=== PATIENT | female | born 1950 | race Two or more races ===

== ENCOUNTER 2020-10-06 13:50 | Emergency (ER) | payer BC ==
[~2020-10-06] VITALS: Ht 167.6 cm; Wt 70.0 kg
--- NOTE | 2020-10-06 14:00 | NUR ---
JIMY ARITA from urgent care. Pt reports seizure 4days to 2 weeks ago (pt unsure of exact date). And pt hit her face during the seizure. Pt with intermittent epistaxis since then, seen x2 at [facility] for same, referred to [facility] ENT specialist. Pt sitting in ENT chair, gauze held to nose to absorb small amount of blood. Pt speaking in full sentences, resp even and unlabored. Continuous oxygen and BP monitors applied, all safety measures observed.
--- NOTE | 2020-10-06 14:22 | NUR ---
JOSEPH RN: PT REPORTS A PAIN IN HER NOSE. VS STABLE. NO ACUTE DISTRESS NOTED. CALL LIGHT IN PLACE.
[2020-10-06 16:02] VITALS: BP 144/53
--- NOTE | 2020-10-06 16:05 | NUR ---
Set of vs obtained, vss. Pt is sitting upright in exam roe, call light within reach.
[2020-10-06] MEDS ORDERED: OXYMETAZOLINE NASAL SPRAY 0.05%,30ML ONE (16:24)
[2020-10-06] MEDS ORDERED: HYDROcodone/APAP 5/325 TABLET ONE (16:24)
[2020-10-06] MEDS ORDERED: HYDROcodone/APAP 5/325 TABLET PO ONE (16:30)
[2020-10-06] MEDS ORDERED: OXYMETAZOLINE NASAL SPRAY 0.05%, 15ML NAS ONE (16:30)
--- NOTE | 2020-10-06 17:08 | NUR ---
Pt reports pain in nose improved after medications. Pt denies other needs.
[2020-10-07] MEDS ORDERED: DIVA125T2 PO (18:42)
[2020-10-07] MEDS ORDERED: ZOLP-413 PO (18:42)
[2020-10-07] MEDS ORDERED: LEVE750T8 PO (18:42)
[2020-10-07] MEDS ORDERED: [UNRECOGNIZED DRUG - CODE] PO (18:42)
[2020-10-07] MEDS ORDERED: CEPH500T PO (18:42)
[2020-10-07] MEDS ORDERED: OXYM15SP8 NAS (18:42)
[2020-10-07] MEDS ORDERED: LEVE750T21 PO (18:42)
== END 2020-10-06 18:04 ==
LOC: ED 15:55
DX: S02.2XXA Fracture of nasal bones, initial encounter for closed fracture (principal); R04.0 Epistaxis; X58.XXXA Exposure to other specified factors, initial encounter; Y93.9 Activity, unspecified; Y92.89 Other specified places as the place of occurrence of the external cause; Y99.8 Other external cause status
CPT/HCPCS: 30905; 99283; 99284

== ENCOUNTER 2020-10-07 14:37 | Inpatient (IN) | payer BC ==
[~2020-10-07] VITALS: Ht 167.6 cm; Wt 78.2 kg
--- NOTE | 2020-10-07 15:11 | NUR ---
PT AMBULATED STEADILY TO ROOM FROM WILTON Metz RN. PT REPORTS INTERMITTENT NOSE BLEED SINCE BEING SEEN IN ED YESTERDAY FOR SAME. NASAL ROCKET IN PLACE. BLEEDING STOPPED AT THIS TIME. DENIES PAIN; NO HX OF HTN, NOT ON BLOOD THINNERS. BP/SPO2 MONITORING IN PLACE.
[2020-10-07 15:34] LABS: BASOPHILS % (AUTO) 1 % (0-1); EOSINOPHILS % (AUTO) 0 % (1-7); LYMPHOCYTES % (AUTO) 34 % (22-44); MEAN CORPUSCULAR HEMOGLOBIN 32.1 pg (27.0-34.8); MEAN CORPUSCULAR HGB CONC 33.5 g/dL (32.4-35.8); MEAN PLATELET VOLUME 7.7 fL (7.4-10.4); MONOCYTES % (AUTO) 6 % (2-9); NEUTROPHILS % (AUTO) 59 % (42-75); PLATELET COUNT 349 x10^3/uL (130-400); RED BLOOD COUNT 3.69 x10^6/uL (3.82-5.3); RED CELL DISTRIBUTION WIDTH 14.5 % (9.6-15.2)
[2020-10-07 15:35] LABS: MD NO
[2020-10-07 15:45] LABS: ALANINE AMINOTRANSFERASE 17 U/L (12-78); ALBUMIN 3.8 g/dL (3.4-5.0); ANION GAP 6 mmol/L (5-15); CALCIUM 8.8 mg/dL (8.5-10.1); CHLORIDE 107 mmol/L (98-107)
[2020-10-07 15:47] LABS: ALKALINE PHOSPHATASE 49 U/L (45-117); BILIRUBIN,TOTAL 0.3 mg/dL (0.2-1.0); CREATININE 0.59 mg/dL (0.55-1.02); TOTAL PROTEIN 7.6 g/dL (6.4-8.2)
--- NOTE | 2020-10-07 15:59 | NUR ---
pt in bed with no signs or symptoms of acute distress noted respirations even and unlabored.
--- NOTE | 2020-10-07 16:00 | NUR ---
REPORT TO CHRISTOPHER GAMBOA
[2020-10-07] MEDS ORDERED: HYDROcodone/APAP 5/325 TABLET PO ONE (16:30)
[2020-10-07] MEDS ORDERED: HYDROcodone/APAP 5/325 TABLET ONE (16:37)
--- NOTE | 2020-10-07 16:52 | NUR ---
md at bedside to assess. pt in bed with no signs or symptoms of acute dsitress noted respirations even and unlabored
--- NOTE | 2020-10-07 17:41 | NUR ---
md at bedside to assess. pt in bed with no signs or symptoms of acute dsitress noted respirations even and unlabored
--- NOTE | 2020-10-07 18:37 | NUR ---
report called to floor. rnb to update med list then send pt up. [id number].
[2020-10-07] MEDS ORDERED: ZOLP-413 PO (18:42)
[2020-10-07] MEDS ORDERED: DIVA125T2 PO (18:42)
[2020-10-07] MEDS ORDERED: OXYM15SP8 NAS (18:42)
[2020-10-07] MEDS ORDERED: LEVE750T8 PO (18:42)
[2020-10-07] MEDS ORDERED: CEPH500T PO (18:42)
[2020-10-07] MEDS ORDERED: [UNRECOGNIZED DRUG - CODE] PO (18:42)
[2020-10-07] MEDS ORDERED: LEVE750T21 PO (18:42)
[2020-10-07 19:19] VITALS: BP 129/75
[2020-10-07] MEDS ORDERED: ONDANSETRON 2MG/ML, 2ML IVPush PRN (20:00)
[2020-10-07] MEDS ORDERED: hydrALAzine 20 MG/ML, 1ML IVPush PRN (20:00)
[2020-10-07 20:01] LABS: PROTHROMBIN TIME 10.7 Seconds (9.6-11.5)
[2020-10-07] MEDS: ZOLPIDEM 10MG TABLET PO SCH (21:16)
[2020-10-07] MEDS: DIVALPROEX 500 MG TABLET.DR PO SCH (22:04)
[2020-10-07] MEDS: CEPHALEXIN 500 MG CAPSULE PO SCH (22:04)
[2020-10-07] MEDS: LEVETIRACETAM 375 MG HOMEMEDPO SCH (22:19)
[2020-10-07] MEDS: LACTATED RINGERS 1,000 ML IV SCH (22:27)
[2020-10-07] MEDS: PHENOBARBITAL 32.4 MG HOMEMEDPO SCH (23:03)
[2020-10-08 00:03] VITALS: BP 133/83
[2020-10-08] MEDS: OXYcodone/APAP 5/325MG TABLET PO PRN ×3 (02:28→08:35)
[2020-10-08 02:58] VITALS: BP 151/91
[2020-10-08] MEDS: CEPHALEXIN 500 MG CAPSULE PO SCH ×4 (04:14→21:59)
[2020-10-08 05:37] LABS: BASOPHILS % (AUTO) 1 % (0-1); EOSINOPHILS % (AUTO) 0 % (1-7); LYMPHOCYTES % (AUTO) 28 % (22-44); MEAN CORPUSCULAR HEMOGLOBIN 32.1 pg (27.0-34.8); MEAN CORPUSCULAR HGB CONC 34.1 g/dL (32.4-35.8); MEAN PLATELET VOLUME 7.6 fL (7.4-10.4); MONOCYTES % (AUTO) 7 % (2-9); NEUTROPHILS % (AUTO) 64 % (42-75); PLATELET COUNT 342 x10^3/uL (130-400); RED BLOOD COUNT 3.55 x10^6/uL (3.82-5.3); RED CELL DISTRIBUTION WIDTH 14.5 % (9.6-15.2)
[2020-10-08 05:39] LABS: MD NO
[2020-10-08 07:36] VITALS: BP 126/77
[2020-10-08] MEDS: DIVALPROEX 500 MG TABLET.DR PO SCH ×2 (08:32→22:00)
[2020-10-08] MEDS: LACTATED RINGERS 1,000 ML IV SCH ×2 (08:34→22:00)
[2020-10-08] MEDS ORDERED: PROPOFOL 50 ML ONE (11:37)
[2020-10-08] MEDS ORDERED: MIDAZOLAM 1 MG/ML, 2ML ONE (11:38)
[2020-10-08] MEDS ORDERED: FENTANYL PF 250 MCG/5ML ONE (11:39)
[2020-10-08] MEDS ORDERED: PROPOFOL 10 MG/ML, 20ML ONE (11:41)
[2020-10-08] MEDS ORDERED: LIDOCAINE 1%, 10ML ONE (11:58)
[2020-10-08] MEDS ORDERED: FENTANYL PF 100 MCG/2ML IV PRN (12:30)
[2020-10-08] MEDS ORDERED: ONDANSETRON 2MG/ML, 2ML IVPush PRN (12:30)
[2020-10-08] MEDS ORDERED: EPHEDRINE 50 MG/ML, 1ML IM PRN (12:30)
[2020-10-08] MEDS ORDERED: ACETAMINOPHEN 325 MG TABLET PO PRN (12:30)
[2020-10-08] MEDS ORDERED: DIAZEPAM 5 MG/ML, 2ML IVPush PRN (12:30)
[2020-10-08] MEDS ORDERED: OXYcodone 5 MG/5 ML ORAL.SOL UDC PO PRN (12:30)
[2020-10-08] MEDS ORDERED: DIPHENHYDRAMINE 50 MG/ML, 1ML IVPush PRN (12:30)
[2020-10-08] MEDS ORDERED: morphine SULFATE 10 MG/ML, 1ML IVPush PRN (12:30)
[2020-10-08] MEDS ORDERED: PROMETHAZINE 25 MG/ML, 1ML IVPush PRN (12:30)
[2020-10-08] MEDS ORDERED: MEPERIDINE/PF 25MG/0.5ML IVPush PRN (12:30)
[2020-10-08] MEDS ORDERED: LABETALOL 5MG/ML, 20ML IV PRN (12:30)
[2020-10-08] MEDS ORDERED: EPHEDRINE 50 MG/ML, 1ML IVPush PRN (12:30)
[2020-10-08] MEDS ORDERED: ROCURONIUM 10MG/ML,5ML ONE (12:57)
[2020-10-08] MEDS ORDERED: SUCCINYLCHOLINE 20 MG/ML, 10ML ONE (12:57)
[2020-10-08] MEDS ORDERED: ONDANSETRON 2MG/ML, 2ML ONE (12:58)
[2020-10-08 13:56] VITALS: BP 120/80
[2020-10-08 18:48] VITALS: BP 137/81
[2020-10-08] MEDS: PHENOBARBITAL 32.4 MG HOMEMEDPO SCH ×2 (22:00→23:17)
[2020-10-08] MEDS: LEVETIRACETAM 375 MG HOMEMEDPO SCH ×2 (22:01→23:18)
[2020-10-08] MEDS: ZOLPIDEM 10MG TABLET PO SCH (23:17)
[2020-10-09 02:31] VITALS: BP 111/70
[2020-10-09] MEDS: CEPHALEXIN 500 MG CAPSULE PO SCH ×4 (03:48→22:03)
[2020-10-09 06:09] LABS: BASOPHILS % (AUTO) 1 % (0-1); EOSINOPHILS % (AUTO) 0 % (1-7); LYMPHOCYTES % (AUTO) 28 % (22-44); MEAN CORPUSCULAR HEMOGLOBIN 32.2 pg (27.0-34.8); MEAN CORPUSCULAR HGB CONC 33.9 g/dL (32.4-35.8); MEAN PLATELET VOLUME 7.7 fL (7.4-10.4); MONOCYTES % (AUTO) 9 % (2-9); NEUTROPHILS % (AUTO) 63 % (42-75); PLATELET COUNT 256 x10^3/uL (130-400); RED BLOOD COUNT 3.03 x10^6/uL (3.82-5.3); RED CELL DISTRIBUTION WIDTH 14.4 % (9.6-15.2)
[2020-10-09 06:10] LABS: MD NO
[2020-10-09 06:15] LABS: CHLORIDE 102 mmol/L (98-107)
[2020-10-09 06:24] LABS: ANION GAP 8 mmol/L (5-15); CALCIUM 8.1 mg/dL (8.5-10.1); CREATININE 0.47 mg/dL (0.55-1.02)
[2020-10-09 06:43] VITALS: BP 143/72
[2020-10-09] MEDS: DIVALPROEX 500 MG TABLET.DR PO SCH ×2 (10:09→22:03)
[2020-10-09] MEDS: LACTATED RINGERS 1,000 ML IV SCH ×3 (10:16→20:39)
[2020-10-09] MEDS: ACETAMINOPHEN 325 MG TABLET PO PRN ×2 (10:22→22:03)
[2020-10-09 13:09] VITALS: BP 133/71
[2020-10-09 19:17] VITALS: BP 133/89
[2020-10-09] MEDS: ZOLPIDEM 10MG TABLET PO SCH (22:03)
[2020-10-09] MEDS: LEVETIRACETAM 375 MG HOMEMEDPO SCH (22:04)
[2020-10-09] MEDS: PHENOBARBITAL 32.4 MG HOMEMEDPO SCH (22:04)
[2020-10-10 00:58] VITALS: BP 112/71
[2020-10-10] MEDS: CEPHALEXIN 500 MG CAPSULE PO SCH ×3 (03:43→15:00)
[2020-10-10] MEDS: LACTATED RINGERS 1,000 ML IV SCH (06:27)
[2020-10-10 08:04] VITALS: BP 119/78
[2020-10-10] MEDS: DIVALPROEX 500 MG TABLET.DR PO SCH (08:46)
[2020-10-10 13:33] VITALS: BP 119/68
[2020-10-10] MEDS: ACETAMINOPHEN 325 MG TABLET PO PRN (15:02)
== END 2020-10-10 16:32 | disposition home or self-care (01) | DRG 144 ==
LOC: ED 17:53 → INTOOBSV 17:59 → EDIP 17:59 → OBSVTOIN 17:59 → ED 18:28 → 3N 19:08
PROVIDERS: ADMIT Family Medicine; ATTEND Family Medicine
PROC: B54BZZA Ultrasonography of Right Lower Extremity Veins, Guidance (ICD-10-PCS; 2020-10-08)
PROC: B3131ZZ Fluoroscopy of Right Common Carotid Artery using Low Osmolar Contrast (ICD-10-PCS; 2020-10-08)
PROC: B31N1ZZ Fluoroscopy of Other Upper Arteries using Low Osmolar Contrast (ICD-10-PCS; 2020-10-08)
PROC: 03LM3DZ Occlusion of Right External Carotid Artery with Intraluminal Device, Percutaneous Approach (ICD-10-PCS; principal; 2020-10-08 11:30)
DX: S02.2XXA Fracture of nasal bones, initial encounter for closed fracture (principal); D62 Acute posthemorrhagic anemia; J31.2 Chronic pharyngitis; G40.909 Epilepsy, unspecified, not intractable, without status epilepticus; S00.83XA Contusion of other part of head, initial encounter; W18.30XA Fall on same level, unspecified, initial encounter; J32.9 Chronic sinusitis, unspecified; M50.322 Other cervical disc degeneration at C5-C6 level; Z20.822 Contact with and (suspected) exposure to COVID-19; Z90.710 Acquired absence of both cervix and uterus; Y93.89 Activity, other specified; Y92.89 Other specified places as the place of occurrence of the external cause; Y99.8 Other external cause status
CPT/HCPCS: 36415; 75894; 99285; J3490; 61626; 70486; 76937; 80048; 80053; 80164; 85014; 85018; 85025; 85610; 86850; 86900; 87635; G0378; J2250; J2405; J2704; J3010; C1751; C1769; J0330; J7120